=== PATIENT | male | born 1970 | race Caucasian/White ===

== ENCOUNTER 2020-04-21 19:43 | Emergency (ER) | payer MEDICARE, MEDICAID ==
--- NOTE | 2020-04-21 19:59 | EDM.PDOC ---
ED HPI GENERAL MEDICAL PROBLEM - General Chief Complaint: General Stated Complaint: MEDICAL CLEARANCE Time Seen by Provider: 04/21/20 19:51 Source of Information: Reports: Patient History Limitations: Reports: No Limitations - History of Present Illness INITIAL COMMENTS - FREE TEXT/NARRATIVE: HISTORY AND PHYSICAL: History of present illness: Patient is a 49-year-old male who presents to the emergency room by law enforcement for medical clearance exam. Patient states he has had a couple drinks as it is the anniversary of a friend's shooting. Patient is alert, oriented and answering questions appropriately. He is ambulatory in the room and able to take his jacket off without any difficulty. Law enforcement has no particular concerns other than medical clearance. Patient denies any injury, trauma or falls. Patient denies any fever, chills, headache, change in vision, syncope or near syncope. Denies any chest pain, back pain, shortness of breath or cough. Denies any GI or symptoms. Patient has been eating and drinking appropriately. Review of systems: As per history of present illness and below otherwise all systems reviewed and negative. Past medical history: As per history of present illness and as reviewed below otherwise noncontributory. Surgical history: As per history of present illness and as reviewed below otherwise noncontributory. Social history: See social history for further information Family history: As per history of present illness and as reviewed below otherwise noncontributory. Physical exam: General: Well developed and well nourished 49-year-old male. Alert and orientated x 3. Answering questions appropriately. Nontoxic in appearance and in no acute distress. Vital signs are stable and have been reviewed by me. Nursing notes were reviewed. Accompanied by law enforcement. HEENT: Atraumatic, normocephalic, pupils equal and reactive bilaterally, negative for conjunctival pallor or scleral icterus, mucous membranes moist, trachea midline. No drooling or trismus noted. No meningeal signs. No hot potato voice noted. Lungs: Clear to auscultation, breath sounds equal bilaterally. Normal work of breathing, no accessory muscles used. Heart: S1S2, regular rate and rhythm without overt murmur Abdomen: Soft, nondistended, nontender. Negative for masses or costovertebral tenderness. Skin: Intact, warm, dry. No lesions or rashes noted. Hematologic: No petechiae or purpra. Mucosa appropriate color and normal nail bed color and refill. Extremities: Ambulatory, moves all extremities per self without difficulty or deficits. Neurovascular unremarkable. Neuro: Awake, alert, oriented. Cranial nerves II through XII unremarkable. Cerebellum unremarkable. Motor and sensory unremarkable throughout. Exam nonfocal. Psychiatric: Mood and affect are appropriate. Normal thought process. Answering questions appropriately. Notes: Law enforcement has no specific concerns for today's ER visit. Blood glucose and VSS. I have talked with the patient and constitutional law professor about today's ER visit, in addition to providing specific details for plan of care. Reassessment at the time of disposition demonstrates that the patient is in no acute distress. The patient is stable for discharge, counseling was provided and we discussed in great detail signs and symptoms that would prompt them to return to the Emergency Department. Medication, follow up and supportive care measures were reviewed and discussed. Voices understanding and is agreeable to plan of care. Denies any further questions or concerns at this time. Diagnostics: Blood glucose Therapeutics: None Prescription: None Impression: Encounter for medical screening Plan: 1. Today your physical exam and vital signs are within normal limits. 2. We encourage you to follow up with your primary care provider and/or recommended specialist in the next few days for re-evaluation and further care/management. 3. If you should develop symptoms or feel the need to be evaluated in the emergency department - please feel free to return or call 911 if necessary. Definitive disposition and diagnosis as appropriate pending reevaluation and review of above. - Related Data Allergies Allergy/AdvReac Type Severity Reaction Status Date / Time No Known Allergies Allergy Verified 04/21/20 20:01 Home Meds: Home Meds Albuterol Sulfate [Proair Digihaler] 04/21/20 [History] Past Medical History - Past Surgical History HEENT Surgical History: Reports: Eye Surgery Social & Family History - Family History Family Medical History: No Pertinent Family History Cardiac: Reports: [place] Endocrine/Metabolic: Reports: Diabetes, type II ED ROS GENERAL - Review of Systems Review Of Systems: Comprehensive ROS is negative, except as noted in HPI. ED EXAM, GENERAL - Physical Exam Exam: See Below (See dictation) Course - Vital Signs Last Recorded V/S: Last Vital Signs Temp 96.8 F L 04/21/20 19:59 Pulse 84 04/21/20 19:59 Resp 18 04/21/20 19:59 BP 118/78 04/21/20 19:59 Pulse Ox 95 04/21/20 19:59 - Orders/Labs/Meds Orders: Active Orders 24 hr Category Date Time Status Blood Glucose Check, Bedside [RC] ONETIME Care 04/21/20 19:56 Ordered Departure - Departure Time of Disposition: 19:59 Disposition: Home, Self-Care 01 Clinical Impression: Encounter for medical screening examination - Discharge Information Instructions: Medical Screening Exam Referrals: PCP,Not In Area [Primary Care Provider] - Forms: ED Department Discharge Additional Instructions: The following information is given to patients seen in the emergency department who are being discharged to home. This information is to outline your options for follow-up care. We provide all patients seen in our emergency department with a follow-up referral. The need for follow-up, as well as the timing and circumstances, are variable depending upon the specifics of your emergency department visit. If you don't have a primary care physician on staff, we will provide you with a referral. We always advise you to contact your personal physician following an emergency department visit to inform them of the circumstance of the visit and for follow-up with them and/or the need for any referrals to a consulting specialist. The emergency department will also refer you to a specialist when appropriate. This referral assures that you have the opportunity for follow-up care with a specialist. All of these measure are taken in an effort to provide you with optimal care, which includes your follow-up. Under all circumstances we always encourage you to contact your private physician who remains a resource for coordinating your care. When calling for follow-up care, please make the office aware that this follow-up is from your recent emergency room visit. If for any reason you are refused follow-up, please contact the [facility] Emergency Department at and asked to speak to the emergency department charge nurse. [facility] [address] [place] [id number] [facility] [address] [place] [id number] Thank you for choosing the [facility] emergency department in [place] for your medical needs today. It was a pleasure caring for you. Today you were seen in the emergency department for medical screening exam. 1. Today your physical exam and vital signs are within normal limits. 2. We encourage you to follow up with your primary care provider and/or recommended specialist in the next few days for re-evaluation and further care/management. 3. If you should develop symptoms or feel the need to be evaluated in the emergency department - please feel free to return or call 911 if necessary. Sepsis Event Note (ED) - Focused Exam Vital Signs: Vital Signs Temp Pulse Resp BP Pulse Ox 04/21/20 19:59 96.8 F L 84 18 118/78 95 - My Orders Last 24 Hours: My Active Orders 04/21/20 19:56 Blood Glucose Check, Bedside [RC] ONETIME - Assessment/Plan Last 24 Hours: My Active Orders 04/21/20 19:56 Blood Glucose Check, Bedside [RC] ONETIME
== END 2020-04-21 20:18 | disposition home or self-care (01) ==
LOC: MW.ED 19:43
DX: Z02.89 Encounter for other administrative examinations (principal)
CPT/HCPCS: 82962; 99282; 99283

== ENCOUNTER 2020-04-22 03:20 | Observation (INO) | payer MEDICARE, MEDICAID ==
--- NOTE | 2020-04-22 03:55 | EDM.PDOC ---
ED HPI GENERAL MEDICAL PROBLEM - General Chief Complaint: Chest Pain Stated Complaint: CHEST PAIN Time Seen by Provider: 04/22/20 03:22 Source of Information: Reports: Patient History Limitations: Reports: No Limitations - History of Present Illness INITIAL COMMENTS - FREE TEXT/NARRATIVE: Is a 49-year-old male who presents today for substernal chest pain that started an hour ago. Patient asked to have chest pain on and off for the past few days but today was the past hours been more constant. Pain states the pain is made worse when he coughs or takes a deep breath. Patient denies any nausea vomiting diarrhea. Patient denies any leg swelling fevers or chills. Chest Pain Score (Numeric/FACES): 9 - Related Data Allergies Allergy/AdvReac Type Severity Reaction Status Date / Time No Known Allergies Allergy Verified 04/22/20 03:27 Home Meds: Home Meds Albuterol Sulfate [Proair Digihaler] 04/21/20 [History] Past Medical History Respiratory History: Reports: Asthma, COPD - Infectious Disease History Infectious Disease History: Reports: Chicken Pox - Past Surgical History HEENT Surgical History: Reports: Eye Surgery Social & Family History - Family History Family Medical History: No Pertinent Family History Cardiac: Reports: [place] Endocrine/Metabolic: Reports: Diabetes, type II - Caffeine Use Caffeine Use: Reports: Coffee ED ROS GENERAL - Review of Systems Review Of Systems: See Below Constitutional: Reports: No Symptoms HEENT: Reports: No Symptoms Respiratory: Reports: No Symptoms Cardiovascular: Reports: Chest Pain Endocrine: Reports: No Symptoms GI/Abdominal: Reports: No Symptoms : Reports: No Symptoms Musculoskeletal: Reports: No Symptoms Skin: Reports: No Symptoms Neurological: Reports: No Symptoms Psychiatric: Reports: No Symptoms Hematologic/Lymphatic: Reports: No Symptoms Immunologic: Reports: No Symptoms ED EXAM, GENERAL - Physical Exam Exam: See Below Exam Limited By: No Limitations General Appearance: Alert, WD/WN, No Apparent Distress Eye Exam: Bilateral Eye: EOMI, PERRL Respiratory/Chest: No Respiratory Distress, Lungs Clear Cardiovascular: Normal Peripheral Pulses, Regular Rate, Rhythm Peripheral Pulses: 2+: Radial (L), Radial (R) GI/Abdominal: Normal Bowel Sounds, Soft, Non-Tender Extremities: Normal Inspection Neurological: Alert, Oriented, CN II-XII Intact, Normal Cognition, Normal Gait #1 Interpretation EKG Date: 04/22/20 Time: 03:15 Rhythm: NSR [place]: Normal ST-T: Normal Course - Vital Signs Last Recorded V/S: Last Vital Signs Temp 98.0 F 04/22/20 03:24 Pulse 92 04/22/20 03:24 Resp 20 04/22/20 03:24 BP 131/81 04/22/20 03:24 Pulse Ox 95 04/22/20 03:24 - Orders/Labs/Meds Orders: Active Orders 24 hr Category Date Time Status EKG Documentation Completion [RC] STAT Care 04/22/20 03:34 Active CREATINE KINASE,CK [CHEM] Stat Lab 04/22/20 06:52 Received TROPONIN I [CHEM] Stat Lab 04/22/20 06:52 Received Labs: Laboratory Tests 04/22/20 04/22/20 04/22/20 Range/Units 03:50 03:50 05:00 WBC 6.99 (4.0-11.0) K/uL RBC 4.95 (4.50-5.90) M/uL Hgb 16.4 (13.0-17.0) g/dL Hct 47.2 (38.0-50.0) % MCV 95.4 (80.0-98.0) fL MCH 33.1 H (27.0-32.0) pg MCHC 34.7 (31.0-37.0) g/dL RDW Std Deviation 47.7 (28.0-62.0) fl RDW Coeff of Vega 14 (11.0-15.0) % Plt Count 304 (150-400) K/uL MPV 9.20 (7.40-12.00) fL Neut % (Auto) 64.9 (48.0-80.0) % Lymph % (Auto) 26.6 (16.0-40.0) % [place] % (Auto) 7.3 (0.0-15.0) % Eos % (Auto) 0.6 (0.0-7.0) % Baso % (Auto) 0.6 (0.0-1.5) % Neut # (Auto) 4.5 (1.4-5.7) K/uL Lymph # (Auto) 1.9 (0.6-2.4) K/uL [place] # (Auto) 0.5 (0.0-0.8) K/uL Eos # (Auto) 0.0 (0.0-0.7) K/uL Baso # (Auto) 0.0 (0.0-0.1) K/uL Nucleated RBC % 0.0 /100WBC Nucleated RBCs # 0 K/uL Sodium 144 (136-148) mmol/L Potassium 4.8 (3.5-5.1) mmol/L Chloride 108 H (98-107) mmol/L Carbon Dioxide 26.7 (21.0-32.0) mmol/L BUN 10 (7.0-18.0) mg/dL Creatinine 1.1 (0.8-1.3) mg/dL Est Cr Clr Drug Dosing 74.28 mL/min Estimated GFR (MDRD) > 60.0 ml/min Glucose 117 H (74-106) mg/dL Calcium 8.0 L (8.5-10.1) mg/dL Total Bilirubin 0.2 (0.2-1.0) mg/dL AST 34 (15-37) IU/L ALT 72 H (14-63) IU/L Alkaline Phosphatase 80 (46-116) U/L Troponin I < 0.050 (0.000-0.056) ng/mL Total Protein 7.3 (6.4-8.2) g/dL Albumin 3.5 (3.4-5.0) g/dL Globulin 3.8 (2.6-4.0) g/dL Albumin/Globulin Ratio 0.9 (0.9-1.6) Influenza Type A RNA NEGATIVE (NEGATIVE) Influenza Type B RNA NEGATIVE (NEGATIVE) SARS-CoV-2 RNA (ANETTE) POSITIVE H (NEGATIVE) Meds: Medications Discontinued Medications Generic Name Dose Route Start Last Admin Trade Name Freq PRN Reason Stop Dose Admin Al Hydroxide/Mg Hydroxide 15 0 ml 04/22/20 05:31 04/22/20 05:54 ml/ Lidocaine HCl 5 ml PO 04/22/20 05:32 20 each ONETIME ONE Administration Famotidine 20 mg 04/22/20 05:31 04/22/20 05:54 Pepcid PO 04/22/20 05:32 20 mg ONETIME ONE Administration Departure - Departure Time of Disposition: 07:05 Disposition: Still A Patient 30 Condition: Good Clinical Impression: Chest pain - Discharge Information Referrals: PCP,None [Primary Care Provider] - Forms: ED Department Discharge Sepsis Event Note (ED) - Evaluation Sepsis Screening Result: No Definite Risk - Focused Exam Vital Signs: Vital Signs Temp Pulse Resp BP Pulse Ox 04/22/20 03:24 98.0 F 92 20 131/81 95 - My Orders Last 24 Hours: My Active Orders 04/22/20 03:34 EKG Documentation Completion [RC] STAT 04/22/20 06:52 CREATINE KINASE,CK [CHEM] Stat TROPONIN I [CHEM] Stat - Assessment/Plan Last 24 Hours: My Active Orders 04/22/20 03:34 EKG Documentation Completion [RC] STAT 04/22/20 06:52 CREATINE KINASE,CK [CHEM] Stat TROPONIN I [CHEM] Stat Assessment:: Patient is a 49-year-old male who presents today for substernal chest pain does not radiate and is made worse with cough. Will obtain x-ray EKG labs and reassess. He has a heart score of 1.
[2020-04-22 04:21] LABS: BLOOD UREA NITROGEN,BUN 10 mg/dL (7.0-18.0); CARBON DIOXIDE,CO2 26.7 mmol/L (21.0-32.0); CHLORIDE,CL 108 mmol/L (98-107); GLUCOSE RANDOM 117 mg/dL (74-106); POTASSIUM,K 4.8 mmol/L (3.5-5.1); SODIUM,NA 144 mmol/L (136-148)
--- NOTE | 2020-04-22 04:41 | CR ---
INDICATION: Chest pain. TECHNIQUE: AP chest. COMPARISON: None. FINDINGS: The cardiac, mediastinal and hilar contours are within normal limits. Pulmonary vasculature is unremarkable. There appears be mild central peribronchial thickening, which suggests airways disease (i.e. Bronchitis) with subtle patchy airspace opacities seen peripherally in both mid lungs. This could be related to an acute infectious or inflammatory process and should be correlated clinically. No dense areas of airspace consolidation are seen. No appreciable pleural fluid. No pneumothorax. IMPRESSION: See above. Dictated by Av Reno MD @ 04/22/2020 4:38:58 AM Dictated by: Av Reno MD @ 04/22/2020 04:39:20 (Electronically Signed)
[2020-04-22] MEDS ORDERED: Famotidine 20 MG Tab PO ONE (05:31)
[2020-04-22] MEDS ORDERED: Alum Hydrox/Mag Hydrox/Simeth 15 ML, Lidocaine 2% 5 ML PO ONE ×2 (05:31)
[2020-04-22 05:41] LABS: CORONAVIRUS COVID-19 NAA POSITIVE (NEGATIVE); INFLUENZA A NAA NEGATIVE (NEGATIVE); INFLUENZA B NAA NEGATIVE (NEGATIVE)
[2020-04-22] MEDS ORDERED: Albuterol/Ipratropium 3.0-0.5 MG/3 ML Neb Soln NEB PRN (08:34)
[2020-04-22] MEDS ORDERED: Ondansetron 4 MG/2 ML SDV IVPUSH PRN (08:34)
[2020-04-22] MEDS ORDERED: Ketorolac 15 MG/ML SDV IVPUSH ONE (09:00)
[2020-04-22] MEDS ORDERED: LORazepam 2 MG/ML SDV IVPUSH SCH (10:00)
--- NOTE | 2020-04-22 10:14 | PCM.HP.2 ---
<Katie Garcia - Last Filed: 04/22/20 13:10> H&P History of Present Illness - General Date of Service: 04/22/20 Admit Problem/Dx: Admission Diagnosis/Problem Admission Diagnosis/Problem Chest pain Source of Information: Patient History Limitations: Reports: No Limitations - History of Present Illness Initial Comments - Free Text/Narative: Patient is a 49-year-old male with significant past medical history of COPD, daily tobacco abuser, hypercholesterolemia; presenting to the ED on April 22, 2020 secondary to 1 to 2 hours of chest pain. Mentions prior chest pain which was substernal and nonradiating began 2 to 3 hours after his last drink of a lcohol. Patient is a recovering alcoholic but did have 3-4 drinks last night around 5 PM. Patient otherwise denies fevers, chills, body aches, diaphoresis, radiation of chest pain, shortness of breath but did feel pain worsening and presented to the ED via EMS. ED course: Normal sinus rhythm without ST elevation/depression Chest x-ray: Mild peribronchial thickening however no dense areas of con solidation. No pleural effusion and or pneumothorax appreciated. Troponin x2 -: Covid positive Given one-time dose of Pepcid and/GI cocktail Bedside: Endorses similar story as above. Mentions chest pain actually may have gone longer than reported earlier. However states that after drinking alcohol 3 to 4 hours after his last drink having 9 out of 10 chest pain. Mentions pain is consistent and not alleviated/aggravated by movement. Denies any shortness of breath. Denies any history of delirium tremens. Endorses having his first Covid vaccine 1 month prior. Chest Pain Score (Numeric/FACES): 8 - Related Data Allergies/Adverse Reactions: Allergies Allergy/AdvReac Type Severity Reaction Status Date / Time No Known Allergies Allergy Verified 04/22/20 03:27 Home Medications: Home Meds Albuterol Sulfate [Proair Digihaler] 04/21/20 [History] Past Medical History HEENT History: Reports: Impaired Vision Cardiovascular History: Reports: High Cholesterol Respiratory History: Reports: Asthma, COPD Gastrointestinal History: Reports: GERD Psychiatric History: Reports: Other (See Below) Other Psychiatric History: substance abuse, alcoholism - Infectious Disease History Infectious Disease History: Reports: Chicken Pox - Past Surgical History HEENT Surgical History: Reports: Eye Surgery Cardiovascular Surgical History: Reports: None Respiratory Surgical History: Reports: None GI Surgical History: Reports: None Social & Family History - Family History Family Medical History: No Pertinent Family History Cardiac: Reports: DE Endocrine/Metabolic: Reports: Diabetes, type II - Tobacco Use Tobacco Use Status *Q: Heavy Tobacco User Years of Tobacco use: 44 Packs/Tins Daily: 0.5 Used Tobacco, but Quit: No Second Hand Smoke Exposure: Yes - Caffeine Use Caffeine Use: Reports: Coffee, Energy Drinks - Alcohol Use Date of Last Drink: 04/21/20 - Recreational Drug Use Recreational Drug Use: No H&P Review of Systems - Review of Systems: Review Of Systems: See Below General: Denies: Fever, Chills, Malaise HEENT: Reports: No Symptoms Pulmonary: Reports: No Symptoms Cardiovascular: Reports: Chest Pain. Denies: Orthopnea, Edema, Lightheadedness, Syncope Gastrointestinal: Reports: Abdominal Pain. Denies: Constipation, Diarrhea, Nausea Genitourinary: Reports: No Symptoms Musculoskeletal: Reports: No Symptoms Neurological: Reports: Tremors. Denies: Headache Exam - Exam Exam: See Below - Vital Signs Vital Signs: Last Vital Signs Temp 97.8 F 04/22/20 09:31 Pulse 78 04/22/20 09:31 Resp 18 04/22/20 09:31 BP 139/77 04/22/20 09:31 Pulse Ox 96 04/22/20 09:31 Weight: 87.09 kg - Exam Quality Assessment: No: Supplemental Oxygen General: Alert, Oriented HEENT: EOMI Neck: Supple, Trachea Midline Lungs: Other (wheezing noted but moving air well ) Cardiovascular: Regular Rate, Regular Rhythm GI/Abdominal Exam: Soft, Non-Tender Back Exam: Normal Inspection Extremities: No Pedal Edema Neuro Extensive - Mental Status: Alert, Oriented x3, Normal Mood/Affect Neuro Extensive - Motor, Sensory, Reflexes: CN II-XII Intact Psychiatric: Alert - Patient Data Lab Results Last 24 hrs: Laboratory Results - last 24 hr 04/22/20 04/22/20 04/22/20 Range/Units 03:50 03:50 05:00 WBC 6.99 (4.0-11.0) K/uL RBC 4.95 (4.50-5.90) M/uL Hgb 16.4 (13.0-17.0) g/dL Hct 47.2 (38.0-50.0) % MCV 95.4 (80.0-98.0) fL MCH 33.1 H (27.0-32.0) pg MCHC 34.7 (31.0-37.0) g/dL RDW Std Deviation 47.7 (28.0-62.0) fl RDW Coeff of Vega 14 (11.0-15.0) % Plt Count 304 (150-400) K/uL MPV 9.20 (7.40-12.00) fL Neut % (Auto) 64.9 (48.0-80.0) % Lymph % (Auto) 26.6 (16.0-40.0) % [place] % (Auto) 7.3 (0.0-15.0) % Eos % (Auto) 0.6 (0.0-7.0) % Baso % (Auto) 0.6 (0.0-1.5) % Neut # (Auto) 4.5 (1.4-5.7) K/uL Lymph # (Auto) 1.9 (0.6-2.4) K/uL [place] # (Auto) 0.5 (0.0-0.8) K/uL Eos # (Auto) 0.0 (0.0-0.7) K/uL Baso # (Auto) 0.0 (0.0-0.1) K/uL Nucleated RBC % 0.0 /100WBC Nucleated RBCs # 0 K/uL Sodium 144 (136-148) mmol/L Potassium 4.8 (3.5-5.1) mmol/L Chloride 108 H (98-107) mmol/L Carbon Dioxide 26.7 (21.0-32.0) mmol/L BUN 10 (7.0-18.0) mg/dL Creatinine 1.1 (0.8-1.3) mg/dL Est Cr Clr Drug Dosing 74.28 mL/min Estimated GFR (MDRD) > 60.0 ml/min Glucose 117 H (74-106) mg/dL Calcium 8.0 L (8.5-10.1) mg/dL Total Bilirubin 0.2 (0.2-1.0) mg/dL AST 34 (15-37) IU/L ALT 72 H (14-63) IU/L Alkaline Phosphatase 80 (46-116) U/L Creatine Kinase (26-308) U/L Troponin I < 0.050 (0.000-0.056) ng/mL Total Protein 7.3 (6.4-8.2) g/dL Albumin 3.5 (3.4-5.0) g/dL Globulin 3.8 (2.6-4.0) g/dL Albumin/Globulin Ratio 0.9 (0.9-1.6) Triglycerides (0-200) mg/dL Cholesterol (50-200) mg/dL LDL Cholesterol, Calc (60-180) mg/dL VLDL Cholesterol (5-55) mg/dL HDL Cholesterol (40-60) mg/dL Cholesterol/HDL Ratio (3.3-6.0) TSH 3rd Generation (0.36-3.74) uIU/mL Influenza Type A RNA NEGATIVE (NEGATIVE) Influenza Type B RNA NEGATIVE (NEGATIVE) SARS-CoV-2 RNA (ANETTE) POSITIVE H (NEGATIVE) 04/22/20 04/22/20 Range/Units 06:52 06:52 WBC (4.0-11.0) K/uL RBC (4.50-5.90) M/uL Hgb (13.0-17.0) g/dL Hct (38.0-50.0) % MCV (80.0-98.0) fL MCH (27.0-32.0) pg MCHC (31.0-37.0) g/dL RDW Std Deviation (28.0-62.0) fl RDW Coeff of Vega (11.0-15.0) % Plt Count (150-400) K/uL MPV (7.40-12.00) fL Neut % (Auto) (48.0-80.0) % Lymph % (Auto) (16.0-40.0) % [place] % (Auto) (0.0-15.0) % Eos % (Auto) (0.0-7.0) % Baso % (Auto) (0.0-1.5) % Neut # (Auto) (1.4-5.7) K/uL Lymph # (Auto) (0.6-2.4) K/uL [place] # (Auto) (0.0-0.8) K/uL Eos # (Auto) (0.0-0.7) K/uL Baso # (Auto) (0.0-0.1) K/uL Nucleated RBC % /100WBC Nucleated RBCs # K/uL Sodium (136-148) mmol/L Potassium (3.5-5.1) mmol/L Chloride (98-107) mmol/L Carbon Dioxide (21.0-32.0) mmol/L BUN (7.0-18.0) mg/dL Creatinine (0.8-1.3) mg/dL Est Cr Clr Drug Dosing mL/min Estimated GFR (MDRD) ml/min Glucose (74-106) mg/dL Calcium (8.5-10.1) mg/dL Total Bilirubin (0.2-1.0) mg/dL AST (15-37) IU/L ALT (14-63) IU/L Alkaline Phosphatase (46-116) U/L Creatine Kinase 261 (26-308) U/L Troponin I < 0.050 (0.000-0.056) ng/mL Total Protein (6.4-8.2) g/dL Albumin (3.4-5.0) g/dL Globulin (2.6-4.0) g/dL Albumin/Globulin Ratio (0.9-1.6) Triglycerides 230 H (0-200) mg/dL Cholesterol 228 H (50-200) mg/dL LDL Cholesterol, Calc 147 (60-180) mg/dL VLDL Cholesterol 46 (5-55) mg/dL HDL Cholesterol 35 L (40-60) mg/dL Cholesterol/HDL Ratio 6.5 H (3.3-6.0) TSH 3rd Generation 2.33 (0.36-3.74) uIU/mL Influenza Type A RNA (NEGATIVE) Influenza Type B RNA (NEGATIVE) SARS-CoV-2 RNA (ANETTE) (NEGATIVE) Result Diagrams: 04/22/20 03:50 04/22/20 03:50 Sepsis Event Note - Evaluation Sepsis Screening Result: No Definite Risk - Focused Exam Vital Signs: Vital Signs Temp Pulse Resp BP Pulse Ox 04/22/20 09:31 97.8 F 78 18 139/77 96 04/22/20 07:20 79 17 139/88 96 04/22/20 03:24 98.0 F 92 20 131/81 95 - Problem List (1) COVID-19 SNOMED Code(s): 504199831 ICD Code: U07.1 - COVID-19 Status: Acute Current Visit: Yes (2) Chest pain SNOMED Code(s): 52652731 ICD Code: R07.9 - CHEST PAIN, UNSPECIFIED Status: Acute Current Visit: Yes Problem List Initiated/Reviewed/Updated: Yes Orders Last 24hrs: Active Orders 24 hr Category Date Time Status Patient Status [ADT] Routine ADT 04/22/20 08:14 Active Ambulate [RC] ASDIRECTED Care 04/22/20 08:34 Active Antiembolic Devices [RC] PER UNIT ROUTINE Care 04/22/20 08:35 Active CIWAA Assessment [RC] ASDIRECTED Care 04/22/20 09:51 Active Oxygen Therapy [RC] PRN Care 04/22/20 08:34 Active Pulse Oximetry [RC] PRN Care 04/22/20 08:34 Active RT Aerosol Therapy [RC] ASDIRECTED Care 04/22/20 08:35 Active Telemetry Monitoring [Cardiac Monitoring] [RC] Q8H Care 04/22/20 08:58 Active VTE/DVT Education [RC] PER UNIT ROUTINE Care 04/22/20 08:34 Active Vital Signs [RC] Q4H Care 04/22/20 08:34 Active Heart Healthy Diet [DIET] Diet 04/22/20 Lunch Active TROPONIN I [CHEM] Routine Lab 04/22/20 10:00 Ordered UA RFX JESUS AND CULT IF INDIC [URIN] Routine Lab 04/22/20 08:44 Ordered Albuterol/Ipratropium [DuoNeb 3.0-0.5 MG/3 ML] Med 04/22/20 08:34 Active 3 ml NEB Q4HRRT PRN LORazepam [Ativan] Med 04/22/20 10:00 Active See Protocol IVPUSH Q4H Ondansetron [Zofran] Med 04/22/20 08:34 Active 4 mg IVPUSH Q4H PRN Sequential Compression Device [OM.PC] Per Unit Routine Oth 04/22/20 08:34 Ordered Resuscitation Status Routine Resus Stat 04/22/20 08:34 Ordered Medication Orders Albuterol/Ipratropium (Duoneb 3.0-0.5 Mg/3 Ml) 3 ml NEB Q4HRRT PRN PRN Reason: Shortness Of Breath/wheezing Lorazepam (Ativan) 0 mg IVPUSH Q4H PACO; Protocol Ondansetron HCl (Zofran) 4 mg IVPUSH Q4H PRN PRN Reason: Nausea/Vomiting Assessment/Plan Comment:: Assessment: 1. Acute chest pain/ACS rule out 2. Covid positive 3. Alcohol use with possible impending withdrawal 4. Past medical history: hyperlipidemia, COPD Plan Admit to observation. Full code. I's and O's routine vitals routine Telemetry 1. ACS evaluation: EKG normal sinus rhythm. On telemetry. Troponin x2 -; will await third troponin Patient will need an outpatient echo/stress test. Echocardiogram is not performed over the weekend at our facility. Patient was started on daily aspirin 81 mg, atorvastatin 40; 2. Covid positive: On room air; mild wheezing however patent has history of COPD; Combivent every 4 hours as needed for wheezing/shortness of breath/cough ordered. We will continue to monitor. 3. History of alcohol use disorder; last drink at 5 PM last night: Endorses 3-4 drinks last night; initiate CIWA/Ativan protocol for possible impending withdrawal; . <Dilip Rojo - Last Filed: 04/22/20 14:36> H&P History of Present Illness - General Admit Problem/Dx: Admission Diagnosis/Problem Admission Diagnosis/Problem Chest pain Exam - Vital Signs Vital Signs: Last Vital Signs Temp 36.6 C 04/22/20 09:31 Pulse 95 04/22/20 14:17 Resp 16 04/22/20 14:17 BP 138/80 04/22/20 14:17 Pulse Ox 95 04/22/20 14:17 - Patient Data Lab Results Last 24 hrs: Laboratory Results - last 24 hr 04/22/20 04/22/20 04/22/20 Range/Units 03:50 03:50 05:00 WBC 6.99 (4.0-11.0) K/uL RBC 4.95 (4.50-5.90) M/uL Hgb 16.4 (13.0-17.0) g/dL Hct 47.2 (38.0-50.0) % MCV 95.4 (80.0-98.0) fL MCH 33.1 H (27.0-32.0) pg MCHC 34.7 (31.0-37.0) g/dL RDW Std Deviation 47.7 (28.0-62.0) fl RDW Coeff of Vega 14 (11.0-15.0) % Plt Count 304 (150-400) K/uL MPV 9.20 (7.40-12.00) fL Neut % (Auto) 64.9 (48.0-80.0) % Lymph % (Auto) 26.6 (16.0-40.0) % [place] % (Auto) 7.3 (0.0-15.0) % Eos % (Auto) 0.6 (0.0-7.0) % Baso % (Auto) 0.6 (0.0-1.5) % Neut # (Auto) 4.5 (1.4-5.7) K/uL Lymph # (Auto) 1.9 (0.6-2.4) K/uL [place] # (Auto) 0.5 (0.0-0.8) K/uL Eos # (Auto) 0.0 (0.0-0.7) K/uL Baso # (Auto) 0.0 (0.0-0.1) K/uL Nucleated RBC % 0.0 /100WBC Nucleated RBCs # 0 K/uL Sodium 144 (136-148) mmol/L Potassium 4.8 (3.5-5.1) mmol/L Chloride 108 H (98-107) mmol/L Carbon Dioxide 26.7 (21.0-32.0) mmol/L BUN 10 (7.0-18.0) mg/dL Creatinine 1.1 (0.8-1.3) mg/dL Est Cr Clr Drug Dosing 74.28 mL/min Estimated GFR (MDRD) > 60.0 ml/min Glucose 117 H (74-106) mg/dL Calcium 8.0 L (8.5-10.1) mg/dL Total Bilirubin 0.2 (0.2-1.0) mg/dL AST 34 (15-37) IU/L ALT 72 H (14-63) IU/L Alkaline Phosphatase 80 (46-116) U/L Creatine Kinase (26-308) U/L Troponin I < 0.050 (0.000-0.056) ng/mL Total Protein 7.3 (6.4-8.2) g/dL Albumin 3.5 (3.4-5.0) g/dL Globulin 3.8 (2.6-4.0) g/dL Albumin/Globulin Ratio 0.9 (0.9-1.6) Triglycerides (0-200) mg/dL Cholesterol (50-200) mg/dL LDL Cholesterol, Calc (60-180) mg/dL VLDL Cholesterol (5-55) mg/dL HDL Cholesterol (40-60) mg/dL Cholesterol/HDL Ratio (3.3-6.0) TSH 3rd Generation (0.36-3.74) uIU/mL Influenza Type A RNA NEGATIVE (NEGATIVE) Influenza Type B RNA NEGATIVE (NEGATIVE) SARS-CoV-2 RNA (ANETTE) POSITIVE H (NEGATIVE) 04/22/20 04/22/20 04/22/20 Range/Units 06:52 06:52 10:05 WBC (4.0-11.0) K/uL RBC (4.50-5.90) M/uL Hgb (13.0-17.0) g/dL Hct (38.0-50.0) % MCV (80.0-98.0) fL MCH (27.0-32.0) pg MCHC (31.0-37.0) g/dL RDW Std Deviation (28.0-62.0) fl RDW Coeff of Vega (11.0-15.0) % Plt Count (150-400) K/uL MPV (7.40-12.00) fL Neut % (Auto) (48.0-80.0) % Lymph % (Auto) (16.0-40.0) % [place] % (Auto) (0.0-15.0) % Eos % (Auto) (0.0-7.0) % Baso % (Auto) (0.0-1.5) % Neut # (Auto) (1.4-5.7) K/uL Lymph # (Auto) (0.6-2.4) K/uL [place] # (Auto) (0.0-0.8) K/uL Eos # (Auto) (0.0-0.7) K/uL Baso # (Auto) (0.0-0.1) K/uL Nucleated RBC % /100WBC Nucleated RBCs # K/uL Sodium (136-148) mmol/L Potassium (3.5-5.1) mmol/L Chloride (98-107) mmol/L Carbon Dioxide (21.0-32.0) mmol/L BUN (7.0-18.0) mg/dL Creatinine (0.8-1.3) mg/dL Est Cr Clr Drug Dosing mL/min Estimated GFR (MDRD) ml/min Glucose (74-106) mg/dL Calcium (8.5-10.1) mg/dL Total Bilirubin (0.2-1.0) mg/dL AST (15-37) IU/L ALT (14-63) IU/L Alkaline Phosphatase (46-116) U/L Creatine Kinase 261 (26-308) U/L Troponin I < 0.050 < 0.050 (0.000-0.056) ng/mL Total Protein (6.4-8.2) g/dL Albumin (3.4-5.0) g/dL Globulin (2.6-4.0) g/dL Albumin/Globulin Ratio (0.9-1.6) Triglycerides 230 H (0-200) mg/dL Cholesterol 228 H (50-200) mg/dL LDL Cholesterol, Calc 147 (60-180) mg/dL VLDL Cholesterol 46 (5-55) mg/dL HDL Cholesterol 35 L (40-60) mg/dL Cholesterol/HDL Ratio 6.5 H (3.3-6.0) TSH 3rd Generation 2.33 (0.36-3.74) uIU/mL Influenza Type A RNA (NEGATIVE) Influenza Type B RNA (NEGATIVE) SARS-CoV-2 RNA (ANETTE) (NEGATIVE) Result Diagrams: 04/22/20 03:50 04/22/20 03:50 Sepsis Event Note - Focused Exam Vital Signs: Vital Signs Temp Pulse Resp BP Pulse Ox 04/22/20 14:17 95 16 138/80 95 04/22/20 10:20 95 04/22/20 09:31 36.6 C 78 18 139/77 96 04/22/20 07:20 79 17 139/88 96 04/22/20 03:24 36.7 C 92 20 131/81 95 Orders Last 24hrs: Active Orders 24 hr Category Date Time Status Patient Status [ADT] Routine ADT 04/22/20 08:14 Active Ambulate [RC] ASDIRECTED Care 04/22/20 08:34 Active Antiembolic Devices [RC] PER UNIT ROUTINE Care 04/22/20 08:35 Active CIWAA Assessment [RC] Q4H Care 04/22/20 09:51 Active Oxygen Therapy [RC] PRN Care 04/22/20 08:34 Active Pulse Oximetry [RC] PRN Care 04/22/20 08:34 Active RT Aerosol Therapy [RC] ASDIRECTED Care 04/22/20 08:35 Active Telemetry Monitoring [Cardiac Monitoring] [RC] Q8H Care 04/22/20 08:58 Active VTE/DVT Education [RC] PER UNIT ROUTINE Care 04/22/20 08:34 Active Vital Signs [RC] Q4H Care 04/22/20 08:34 Active Heart Healthy Diet [DIET] Diet 04/22/20 Lunch Active CBC WITH AUTO DIFF [HEME] AM Lab 04/23/20 05:11 Ordered CBC WITH AUTO DIFF [HEME] AM Lab 04/24/20 05:11 Ordered CBC WITH AUTO DIFF [HEME] AM Lab 04/25/20 05:11 Ordered COMPREHENSIVE METABOLIC PN,CMP [CHEM] AM Lab 04/23/20 05:11 Ordered COMPREHENSIVE METABOLIC PN,CMP [CHEM] AM Lab 04/24/20 05:11 Ordered COMPREHENSIVE METABOLIC PN,CMP [CHEM] AM Lab 04/25/20 05:11 Ordered GLYCOSYLATED HEMOGLOBIN,HGBA1C [CHEM] Routine Lab 04/22/20 14:21 Ordered MAGNESIUM [CHEM] Routine Lab 04/22/20 14:23 Ordered PHOSPHORUS [CHEM] Routine Lab 04/22/20 14:23 Ordered UA RFX JESUS AND CULT IF INDIC [URIN] Routine Lab 04/22/20 08:44 Ordered Acetaminophen [Tylenol Extra Strength] Med 04/22/20 13:30 Active 500 mg PO Q4H PRN Albuterol/Ipratropium [DuoNeb 3.0-0.5 MG/3 ML] Med 04/22/20 08:34 Active 3 ml NEB Q4HRRT PRN Aspirin Med 04/22/20 14:30 Active 81 mg PO DAILY Heparin Sodium Med 04/22/20 14:00 Active 5,000 units SUBCUT Q12H LORazepam [Ativan] Med 04/22/20 10:45 Active 0 mg IVPUSH Q4H PRN Omeprazole Med 04/23/20 07:30 Active 20 mg PO ACBREAKFAST Ondansetron [Zofran] Med 04/22/20 08:34 Active 4 mg IVPUSH Q4H PRN Sodium Chloride 0.9% [Normal Saline] 500 ml Med 04/22/20 13:00 Active IV STAT atorvaSTATin [Lipitor] Med 04/22/20 21:00 Active 40 mg PO BEDTIME Sequential Compression Device [OM.PC] Per Unit Routine Oth 04/22/20 08:34 Ordered Resuscitation Status Routine Resus Stat 04/22/20 08:34 Ordered Medication Orders Acetaminophen (Tylenol Extra Strength) 500 mg PO Q4H PRN PRN Reason: Pain Albuterol/Ipratropium (Duoneb 3.0-0.5 Mg/3 Ml) 3 ml NEB Q4HRRT PRN PRN Reason: Shortness Of Breath/wheezing Aspirin (Aspirin) 81 mg PO DAILY PACO Atorvastatin Calcium (Lipitor) 40 mg PO BEDTIME PACO Heparin Sodium (Porcine) (Heparin Sodium) 5,000 units SUBCUT Q12H PACO Sodium Chloride (Normal Saline) 500 mls @ 999 mls/hr IV STAT PACO Lorazepam (Ativan) 0 mg IVPUSH Q4H PRN; Protocol PRN Reason: ciwa Omeprazole (Omeprazole) 20 mg PO ACBREAKFAST PACO Ondansetron HCl (Zofran) 4 mg IVPUSH Q4H PRN PRN Reason: Nausea/Vomiting Assessment/Plan Comment:: I performed a history and physical exam of the patient and discussed management with resident. I have reviewed the residents note and agree with documented findings and plan unless otherwise specified in my note.
[2020-04-22] MEDS ORDERED: LORazepam 2 MG/ML SDV IVPUSH PRN (10:45)
[2020-04-22] MEDS ORDERED: Sodium Chloride 0.9% 500 ML IV SCH (13:00)
[2020-04-22] MEDS ORDERED: Acetaminophen 500 MG Tab PO PRN (13:30)
[2020-04-22] MEDS: Aspirin 81 MG Tab.Chew PO SCH (14:40)
[2020-04-22] MEDS: Heparin Sodium 5,000 Units/ML Vial SUBCUT SCH (14:40)
[2020-04-22 15:19] LABS: HEMOGLOBIN A1C 5.9 %
[2020-04-22] MEDS ORDERED: Albuterol/Ipratropium 4 GM Inhalation Spray INH PRN (15:53)
[2020-04-22] MEDS: Nicotine 14 MG/24 Hr Patch TRDERM SCH (17:39)
[2020-04-22] MEDS ORDERED: atorvaSTATin 40 MG Tab PO SCH (21:00)
[2020-04-23] MEDS: Heparin Sodium 5,000 Units/ML Vial SUBCUT SCH (02:59)
[2020-04-23 06:57] LABS: BLOOD UREA NITROGEN,BUN 15 mg/dL (7.0-18.0); CARBON DIOXIDE,CO2 25.8 mmol/L (21.0-32.0); CHLORIDE,CL 107 mmol/L (98-107); GLUCOSE RANDOM 104 mg/dL (74-106); POTASSIUM,K 4.1 mmol/L (3.5-5.1); SODIUM,NA 140 mmol/L (136-148)
[2020-04-23] MEDS ORDERED: Omeprazole 20 MG Cap.CR PO SCH (07:30)
[2020-04-23] MEDS: Nicotine 14 MG/24 Hr Patch TRDERM SCH (07:59)
[2020-04-23] MEDS: Aspirin 81 MG Tab.Chew PO SCH (08:00)
--- NOTE | 2020-04-23 11:49 | PCM.DCSUM1 ---
Discharge Summary - Discharge Data Discharge Date: 04/23/20 Discharge Disposition: Home, Self-Care 01 Condition: Fair - Referral to Home Health Primary Care Physician: PCP None - Patient Summary/Data Hospital Course: 49-year-old male with significant past medical history of COPD, daily tobacco abuser, hypercholesterolemia who was admitted for chest pain. He ruled out for acute coronary syndrome with serial negative cardiac enzymes and EKG. He had no events on telemetry. Patient is a recovering alcoholic and was drinking prior to admission which could have trigger his symptoms. He did test positive for COVID but was asymptomatic. He was discharged to have follow up with his PCP. He was started on aspirin and atorvastatin. He was instructed to self isolate for ten days. - Discharge Plan Prescriptions/Med Rec: Aspirin 81 mg PO DAILY #30 tab.chew atorvaSTATin [Lipitor] 40 mg PO BEDTIME #30 tablet Home Medications: Home Meds Albuterol Sulfate [Proair Digihaler] 04/21/20 [History] Aspirin 81 mg PO DAILY #30 tab.chew 04/23/20 [Rx] atorvaSTATin [Lipitor] 40 mg PO BEDTIME #30 tablet 04/23/20 [Rx] - Discharge Summary/Plan Comment DC Time >30 min.: No - Patient Data Vitals - Most Recent: Last Vital Signs Temp 36.4 C 04/23/20 11:00 Pulse 80 04/23/20 11:00 Resp 16 04/23/20 11:00 BP 149/83 H 04/23/20 11:00 Pulse Ox 95 04/23/20 11:00 Weight - Most Recent: 87.09 kg I&O - Last 24 hours: Intake & Output 04/22/20 04/23/20 04/23/20 22:59 06:59 14:59 Intake Total 400 600 Output Total 100 260 Balance 300 340 Lab Results - Last 24 hrs: Laboratory Results - last 24 hr 04/22/20 04/22/20 04/22/20 Range/Units 03:50 06:52 10:05 WBC (4.0-11.0) K/uL RBC (4.50-5.90) M/uL Hgb (13.0-17.0) g/dL Hct (38.0-50.0) % MCV (80.0-98.0) fL MCH (27.0-32.0) pg MCHC (31.0-37.0) g/dL RDW Std Deviation (28.0-62.0) fl RDW Coeff of Vega (11.0-15.0) % Plt Count (150-400) K/uL MPV (7.40-12.00) fL Add Manual Diff Neutrophils % (Manual) (48.0-80.0) % Lymphocytes % (Manual) (16.0-40.0) % Monocytes % (Manual) (0.0-15.0) % Eosinophils % (Manual) (0.0-7.0) % Basophils % (Manual) (0.0-1.5) % Nucleated RBC % /100WBC Absolute Seg Neuts (1.4-5.7) Lymphocytes # (Manual) (0.6-2.4) Monocytes # (Manual) (0.0-0.8) Eosinophils # (Manual) (0.0-0.7) Basophils # (Manual) (0.0-0.1) Nucleated RBCs # K/uL Sodium (136-148) mmol/L Potassium (3.5-5.1) mmol/L Chloride (98-107) mmol/L Carbon Dioxide (21.0-32.0) mmol/L BUN (7.0-18.0) mg/dL Creatinine (0.8-1.3) mg/dL Est Cr Clr Drug Dosing mL/min Estimated GFR (MDRD) ml/min Glucose (74-106) mg/dL Hemoglobin A1c 5.9 (4.5 - 6.2) % Calcium (8.5-10.1) mg/dL Phosphorus 2.8 (2.6-4.7) mg/dL Magnesium 1.9 (1.8-2.4) mg/dL Total Bilirubin (0.2-1.0) mg/dL AST (15-37) IU/L ALT (14-63) IU/L Alkaline Phosphatase (46-116) U/L Total Protein (6.4-8.2) g/dL Albumin (3.4-5.0) g/dL Globulin (2.6-4.0) g/dL Albumin/Globulin Ratio (0.9-1.6) Triglycerides 230 H (0-200) mg/dL Cholesterol 228 H (50-200) mg/dL LDL Cholesterol, Calc 147 (60-180) mg/dL VLDL Cholesterol 46 (5-55) mg/dL HDL Cholesterol 35 L (40-60) mg/dL Cholesterol/HDL Ratio 6.5 H (3.3-6.0) TSH 3rd Generation 2.33 (0.36-3.74) uIU/mL Urine Color Urine Appearance Urine pH (5.0-8.0) Ur Specific [place] (1.001-1.035) Urine Protein (NEGATIVE) mg/dL Urine Glucose (UA) (NEGATIVE) mg/dL Urine Ketones (NEGATIVE) mg/dL Urine Occult Blood (NEGATIVE) Urine Nitrite (NEGATIVE) Urine Bilirubin (NEGATIVE) Urine Urobilinogen (<2.0) EU/dL Ur Leukocyte Esterase (NEGATIVE) Urine RBC (0-2/HPF) Urine WBC (0-5/HPF) Ur Epithelial Cells (NONE-FEW) Urine Bacteria (NEGATIVE) 04/22/20 04/23/20 04/23/20 Range/Units 17:20 06:15 06:15 WBC 6.95 (4.0-11.0) K/uL RBC 4.87 (4.50-5.90) M/uL Hgb 15.5 (13.0-17.0) g/dL Hct 46.5 (38.0-50.0) % MCV 95.5 (80.0-98.0) fL MCH 31.8 (27.0-32.0) pg MCHC 33.3 (31.0-37.0) g/dL RDW Std Deviation 48.0 (28.0-62.0) fl RDW Coeff of Vega 14 (11.0-15.0) % Plt Count 298 (150-400) K/uL MPV 9.50 (7.40-12.00) fL Add Manual Diff YES Neutrophils % (Manual) 55 (48.0-80.0) % Lymphocytes % (Manual) 30 (16.0-40.0) % Monocytes % (Manual) 10 (0.0-15.0) % Eosinophils % (Manual) 4 (0.0-7.0) % Basophils % (Manual) 1 (0.0-1.5) % Nucleated RBC % 0.0 /100WBC Absolute Seg Neuts 3.8 (1.4-5.7) Lymphocytes # (Manual) 2.1 (0.6-2.4) Monocytes # (Manual) 0.7 (0.0-0.8) Eosinophils # (Manual) 0.3 (0.0-0.7) Basophils # (Manual) 0.1 (0.0-0.1) Nucleated RBCs # 0 K/uL Sodium 140 (136-148) mmol/L Potassium 4.1 (3.5-5.1) mmol/L Chloride 107 (98-107) mmol/L Carbon Dioxide 25.8 (21.0-32.0) mmol/L BUN 15 (7.0-18.0) mg/dL Creatinine 1.1 (0.8-1.3) mg/dL Est Cr Clr Drug Dosing 74.28 mL/min Estimated GFR (MDRD) > 60.0 ml/min Glucose 104 (74-106) mg/dL Hemoglobin A1c (4.5 - 6.2) % Calcium 8.1 L (8.5-10.1) mg/dL Phosphorus (2.6-4.7) mg/dL Magnesium (1.8-2.4) mg/dL Total Bilirubin 0.5 (0.2-1.0) mg/dL AST 26 (15-37) IU/L ALT 61 (14-63) IU/L Alkaline Phosphatase 75 (46-116) U/L Total Protein 6.7 (6.4-8.2) g/dL Albumin 3.1 L (3.4-5.0) g/dL Globulin 3.6 (2.6-4.0) g/dL Albumin/Globulin Ratio 0.9 (0.9-1.6) Triglycerides (0-200) mg/dL Cholesterol (50-200) mg/dL LDL Cholesterol, Calc (60-180) mg/dL VLDL Cholesterol (5-55) mg/dL HDL Cholesterol (40-60) mg/dL Cholesterol/HDL Ratio (3.3-6.0) TSH 3rd Generation (0.36-3.74) uIU/mL Urine Color YELLOW Urine Appearance CLEAR Urine pH 8.0 (5.0-8.0) Ur Specific [place] 1.015 (1.001-1.035) Urine Protein 30 H (NEGATIVE) mg/dL Urine Glucose (UA) NEGATIVE (NEGATIVE) mg/dL Urine Ketones NEGATIVE (NEGATIVE) mg/dL Urine Occult Blood NEGATIVE (NEGATIVE) Urine Nitrite NEGATIVE (NEGATIVE) Urine Bilirubin NEGATIVE (NEGATIVE) Urine Urobilinogen 1.0 (<2.0) EU/dL Ur Leukocyte Esterase NEGATIVE (NEGATIVE) Urine RBC 0-2 (0-2/HPF) Urine WBC 0-2 (0-5/HPF) Ur Epithelial Cells RARE (NONE-FEW) Urine Bacteria FEW (NEGATIVE) Med Orders - Current: Current Medications Acetaminophen (Tylenol Extra Strength) 500 mg PO Q4H PRN PRN Reason: Pain Albuterol/Ipratropium (Combivent Respimat) 0 gm INH Q4H PRN PRN Reason: Dyspnea Last Admin: 04/22/20 20:30 Dose: 1 puff Documented by: Aspirin (Aspirin) 81 mg PO DAILY [facility] Last Admin: 04/23/20 08:00 Dose: 81 mg Documented by: Atorvastatin Calcium (Lipitor) 40 mg PO BEDTIME [facility] Last Admin: 04/22/20 20:30 Dose: 40 mg Documented by: Heparin Sodium (Porcine) (Heparin Sodium) 5,000 units SUBCUT Q12H [facility] Last Admin: 04/23/20 02:59 Dose: 5,000 units Documented by: Sodium Chloride (Normal Saline) 500 mls @ 999 mls/hr IV STAT [facility] Last Admin: 04/22/20 16:29 Dose: 999 mls/hr Documented by: Lorazepam (Ativan) 0 mg IVPUSH Q4H PRN; Protocol PRN Reason: ciwa Nicotine (Habitrol) 14 mg TRDERM DAILY [facility] Last Admin: 04/23/20 07:59 Dose: 14 mg Documented by: Omeprazole (Omeprazole) 20 mg PO ACBREAKFAST [facility] Last Admin: 04/23/20 06:30 Dose: 20 mg Documented by: Ondansetron HCl (Zofran) 4 mg IVPUSH Q4H PRN PRN Reason: Nausea/Vomiting Discontinued Medications Albuterol/Ipratropium (Duoneb 3.0-0.5 Mg/3 Ml) 3 ml NEB Q4HRRT PRN PRN Reason: Shortness Of Breath/wheezing Al Hydroxide/Mg Hydroxide 15 (ml/ Lidocaine HCl 5 ml) 0 ml PO ONETIME ONE Stop: 04/22/20 05:32 Last Admin: 04/22/20 05:54 Dose: 20 each Documented by: Famotidine (Pepcid) 20 mg PO ONETIME ONE Stop: 04/22/20 05:32 Last Admin: 04/22/20 05:54 Dose: 20 mg Documented by: Ketorolac Tromethamine (Toradol) 15 mg IVPUSH ONETIME ONE Stop: 04/22/20 09:01 Last Admin: 04/22/20 09:56 Dose: 15 mg Documented by:
== END 2020-04-23 12:10 | disposition home or self-care (01) ==
LOC: MW.ED 03:20 → MW.MS 08:14
PROVIDERS: ADMIT Student in an Organized Health Care Education/Training Program; ATTEND Student in an Organized Health Care Education/Training Program
DX: R07.2 Precordial pain (principal); U07.1 COVID-19; F17.210 Nicotine dependence, cigarettes, uncomplicated; J44.9 Chronic obstructive pulmonary disease, unspecified; Z82.49 Family history of ischemic heart disease and other diseases of the circulatory system; E78.00 Pure hypercholesterolemia, unspecified; Z79.899 Other long term (current) drug therapy; Z72.89 Other problems related to lifestyle
CPT/HCPCS: 0240U; 36415; 71045; 80053; 80061; 81001; 82550; 83036; 83735; 84100; 84443; 84484; 85025; 93005; 96372; 96374; 99285; A9270; G0378; J1644; J1885; J7040; 93010; 99284